=== PATIENT | male | born 2005 | race Caucasian/White ===

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

== ENCOUNTER 2023-01-28 10:14 | Emergency (ER) | payer OTHER ==
[2023-01-28 10:19] VITALS: BP 133/78; PULSE 73; RESP 18; TEMP 98.4; BMI 18.6
[2023-01-28 11:15] LABS: PH,URINE 7.5 (5.0-8.0); URINE APPEARANCE CLEAR; URINE BILIRUBIN NEGATIVE (NEGATIVE); URINE COLOR YELLOW; URINE GLUCOSE (UA) NEGATIVE (NEGATIVE); URINE KETONE NEGATIVE (NEGATIVE); URINE LEUK ESTERASE NEGATIVE (NEGATIVE); URINE NITRITE NEGATIVE (NEGATIVE); URINE PROTEIN NEGATIVE (NEGATIVE)
== END 2023-01-28 11:24 | disposition home or self-care (01) ==
LOC: JER 10:14
DX: R10.31 Right lower quadrant pain (principal); R14.1 Gas pain
CPT/HCPCS: 81003; 87086; 99283-25

== ENCOUNTER 2023-07-27 23:43 | Emergency (ER) | payer OTHER ==
[2023-07-27 23:48] VITALS: BP 113/72; PULSE 72; RESP 17; TEMP 98.1; BMI 19.3
== END 2023-07-28 00:21 | disposition home or self-care (01) ==
LOC: JER 23:43
PROC: 0HQFXZZ Repair Right Hand Skin, External Approach (ICD-10-PCS; principal; 2023-07-27)
DX: S61.411A Laceration without foreign body of right hand, initial encounter (principal); W26.8XXA Contact with other sharp object(s), not elsewhere classified, initial encounter
CPT/HCPCS: 99282-25

== ENCOUNTER 2023-10-12 13:11 | Emergency (ER) | payer OTHER ==
[2023-10-12 13:15] VITALS: BP 128/71; PULSE 63; RESP 16; TEMP 97.3; BMI 18.9
[2023-10-12] MEDS ORDERED: KETOROLAC TROMETHAMINE 30 MG/1 ML VIAL ONE (13:54)
[2023-10-12] MEDS: KETOROLAC TROMETHAMINE 30 MG/1 ML VIAL IM ONE (14:07)
[2023-10-12 14:55] LABS: HEMATOCRIT 40.9 % (35.4-49); HEMOGLOBIN 13.9 GM/dL (11.7-16.9); MEAN CELL VOLUME 85.3 fl (80-96); MEAN PLT VOLUME 8.7 fl (7.5-11.1); PLATELET COUNT 230 10^3/uL (134-434); RDW 14.1 % (11.9-15.9); WHITE BLOOD COUNT 3.9 K/mm3 (4.0-10.0)
[2023-10-12 15:15] LABS: POTASSIUM 4.7 mmol/L (3.5-5.1)
[2023-10-12 15:17] LABS: BLOOD UREA NITROGEN 9.2 mg/dL (7-18); CALCIUM 9.7 mg/dL (8.5-10.1); MAGNESIUM 2.3 mg/dL (1.8-2.4)
[2023-10-12 15:18] LABS: ALBUMIN 4.3 g/dl (3.4-5.0)
[2023-10-12 15:21] LABS: CREATININE 0.9 mg/dL (0.55-1.3)
[2023-10-12 15:22] LABS: BILIRUBIN,TOTAL 0.6 mg/dL (0.2-1); TOT PROT 7.6 g/dl (6.4-8.2)
== END 2023-10-12 16:02 | disposition home or self-care (01) ==
LOC: JER 13:11
DX: R07.89 Other chest pain (principal); M94.0 Chondrocostal junction syndrome [Tietze]; R00.2 Palpitations
CPT/HCPCS: 36415; 71046-TC-FY; 80053; 83735; 84484; 85027; 93005; 93010; 99285-25